=== PATIENT | female | born 1970 | race Caucasian/White ===

== ENCOUNTER 2016-06-06 06:30 | Inpatient (IN) | payer MEDICAID ==
[~2016-06-06 06:30] MED LIST: cefOXitin 2 GM in Sodium Chloride 0.9% 50 ML IV ONE
[2016-06-06] MEDS ORDERED: Acetaminophen 500 MG Tab PO ONE (06:58)
[2016-06-06] MEDS ORDERED: Celecoxib 200 MG Cap PO ONE (07:00)
[2016-06-06] MEDS ORDERED: Scopolamine 1.5 MG Transdermal Patch TOP ONE (07:00)
[2016-06-06] MEDS ORDERED: Gabapentin 300 MG Cap PO ONE (07:00)
[2016-06-06] MEDS ORDERED: Acetaminophen Soln 650 MG/20.3 ML UD Cup PO ONE (07:00)
[2016-06-06] MEDS ORDERED: cefOXitin 2 GM Vial ONE (07:15)
[2016-06-06] MEDS ORDERED: Dextrose 5%-Lactated Ringers 1,000 ML IV SCH ×2 (07:30→14:00)
[2016-06-06] MEDS ORDERED: cefOXitin 2 GM in Sodium Chloride 0.9% 50 ML IV ONE (08:30)
[2016-06-06] MEDS ORDERED: Ketamine 500 MG/5 ML MDV IV SCH (09:00)
[2016-06-06] MEDS ORDERED: Ropivacaine 60 ML, Dexamethasone 8 MG, EPINEPHrine 0.4 MG, Sodium Chloride 0.9% 17.6 ML NERVRT SCH ×4 (09:00)
[2016-06-06] MEDS ORDERED: Ondansetron 4 MG/2 ML SDV ONE (09:19)
[2016-06-06] MEDS ORDERED: Succinylcholine/Normal Saline 200 MG/10 ML Syringe ONE (09:19)
[2016-06-06] MEDS ORDERED: Rocuronium 50 MG/5 ML Vial ONE (09:19)
[2016-06-06] MEDS ORDERED: fentaNYL 250 MCG/5 ML SDV ONE (09:19)
[2016-06-06] MEDS ORDERED: Dexamethasone 4 MG/ML SDV ONE (09:19)
[2016-06-06] MEDS ORDERED: Neostigmine Methylsulfate 1 MG/ML 5 ML Syringe ONE (09:19)
[2016-06-06] MEDS ORDERED: Propofol 200 MG/20 ML SDV ONE (09:19)
[2016-06-06] MEDS ORDERED: Lactated Ringers 1,000 ML ONE (09:19)
[2016-06-06] MEDS ORDERED: Lidocaine 2% 100 MG/5 ML Syringe IVPUSH ONE (09:30)
[2016-06-06] MEDS ORDERED: hydrOXYzine HCl 50 MG/ML SDV IM PRN (13:51)
[2016-06-06] MEDS ORDERED: Labetalol 20 MG/4 ML Syringe IVPUSH PRN (13:51)
[2016-06-06] MEDS ORDERED: Ondansetron 4 MG/2 ML SDV IVPUSH PRN (13:51)
[2016-06-06] MEDS ORDERED: SCOPOLAMINE PATCH ASK TOP SCH (13:51)
[2016-06-06] MEDS: Lidocaine 0.4%/D5W 2 GM/500 ML BAG IV SCH (14:24)
[2016-06-06] MEDS: Gabapentin 250 MG/5 ML Solution ML 470 ML Bottle PO SCH ×2 (14:51→20:21)
[2016-06-06] MEDS: Acetaminophen Soln 650 MG/20.3 ML UD Cup PO SCH ×2 (15:14→21:32)
[2016-06-06] MEDS: MVI, Adult with Vitamin K 10 ML, Thiamine 200 MG, Chromium/Copper/Mang/Selen/Zn 1 ML in... IV SCH ×4 (15:48)
[2016-06-06] MEDS: cefOXitin 2 GM in Sodium Chloride 0.9% 50 ML IV SCH ×2 (15:49→21:32)
[2016-06-06] MEDS: Pantoprazole 40 MG Vial IVPUSH SCH (15:53)
[2016-06-06] MEDS: Heparin Sodium 5,000 Units/ML Vial SUBCUT SCH (18:03)
[2016-06-06] MEDS ORDERED: Heparin Sodium 5,000 Units/ML Vial SUBCUT SCH (20:00)
[2016-06-06] MEDS: traZODone 50 MG Tab PO SCH (20:21)
[2016-06-07] MEDS: Lidocaine 0.4%/D5W 2 GM/500 ML BAG IV SCH (03:14)
[2016-06-07] MEDS: cefOXitin 2 GM in Sodium Chloride 0.9% 50 ML IV SCH ×2 (03:16→10:09)
[2016-06-07] MEDS ORDERED: Iohexol 647 MG/ML 50 ML SDV PO STA (04:04)
[2016-06-07] MEDS: Acetaminophen Soln 650 MG/20.3 ML UD Cup PO SCH ×4 (05:28→21:20)
[2016-06-07] MEDS: Heparin Sodium 5,000 Units/ML Vial SUBCUT SCH ×2 (05:56→18:27)
[2016-06-07] MEDS: Celecoxib 200 MG Cap PO SCH (08:49)
[2016-06-07] MEDS: Lisinopril 10 MG Tab PO SCH (08:49)
[2016-06-07] MEDS: FLUoxetine 20 MG Cap PO SCH (08:49)
[2016-06-07] MEDS: Gabapentin 250 MG/5 ML Solution ML 470 ML Bottle PO SCH ×3 (08:52→20:36)
[2016-06-07] MEDS: SCOPOLAMINE PATCH CHECK TOP SCH (08:53)
[2016-06-07] MEDS: Dextrose 5%-Lactated Ringers 1,000 ML IV SCH (10:15)
--- NOTE | 2016-06-07 11:03 | OR ---
DATE OF PROCEDURE: 06/06/2016 PREOPERATIVE DIAGNOSIS: Morbid obesity. POSTOPERATIVE DIAGNOSES: 1. Morbid obesity. 2. Marked hepatomegaly. 3. Paraesophageal diaphragmatic hernia. 4. Mediastinal lipoma. OPERATIVE PROCEDURE: 1. Laparoscopic Yessy-en-Y gastric bypass with long limb gastroenterostomy (22064). 2. Obed-Cut needle liver biopsy (67395). 3. Repair of paraesophageal diaphragmatic hernia (36141). 4. Excision of mediastinal lipoma (12276). ANESTHESIA: General. INSTRUMENTAL MUSIC TEACHER: Nida Smith PA-C. INDICATIONS FOR PROCEDURE: This is a 46-year-old female presenting with longstanding morbid obesity and increasingly significant comorbidities. After preoperative evaluation and discussion, she wished to proceed with a gastric bypass procedure. Potential risks of the procedure including bleeding, infection, leaks from various GI tract closures, problems with bowel obstruction over time as well as possibility of cardiopulmonary, septic, or hemorrhagic complications leading to were discussed, and the patient wishes to proceed. DETAILS OF PROCEDURE: The patient was taken to the operating room and placed in a supine position. After general endotracheal anesthesia was induced, she was converted to a lithotomy position. Cabezas catheter was inserted along the gastrointestinal catheter, abdomen and draped; 15 cm inferior, 5 cm left of xiphoid process, a transverse incision was made and peritoneal cavity entered under direct vision with an Optiview trocar, inflated to 15 mmHg pressure of CO2. Laparoscope was then reinserted. No underlying trocar insertion site injuries were seen. Following this, 5 additional trocars were placed across over mid abdomen, and general exploration was undertaken. The patient was noted to have a marked hepatomegaly with liver volume being roughly 2 to 3 times normal, and the liver grossly fatty infiltrated. Obed-Cut needle biopsy was obtained from the left lobe of the liver. Minimal bleeding from the biopsy site was seen and that area was cauterized. The omentum was then divided in the midline up to the level of the transverse colon. This allowed identification of the small bowel to the ligament of Treitz. Small bowel was then traced out 200 cm distal. At that point, it was divided transversely with a DEBBIE stapler. Small bowel was then traced out additional 200 cm where the [id number] enteroenterostomy was accomplished with internal firing of the Endo-DEBBIE 60 mm stapler, was then closed transversely with the same stapler, and angles anastomosed, and mesenteric defect approximated with some 0 Ethibond stitch along with fibrin sealant. The Yessy limb was then divided from the mesentery for a few centimeters, which allowed an antecolic position of the Yessy limb up to the level of the gastroesophageal junction without tension. The liver was then retracted anteriorly. The patient noted to have a quite large hiatal hernia, major component of this was a paraesophageal type hernia with prolapse of some omentum along with the fundus of the stomach in a plane anterior to the course of the esophagus as the diaphragmatic hernia was reduced. The peritoneum along the esophagogastric junction was divided, and the esophagogastric junction then from the crura on each side, and during the course of the dissection, the mediastinal lipoma was encountered posteriorly, and this was then excised. A combined posterior and anterior repair of the diaphragmatic hernia was accomplished with a series of 0 Ethibond sutures reinforced with PTFE pledgets. At this point, the gastrointestinal catheter was inflated 15 mL and pulled up snugly against the EG junction, gastric wall over the apex balloon was then marked with electrocautery. Balloon catheter deflated and pulled up in the esophagus. The lesser omental tissue adjacent to gastric cardia was then incised allowing dissection behind the stomach at that level. Pouch formation was initiated with a transverse firing of the DEBBIE stapler at the level of the cauterized evelin. The pouch was then completed with some additional DEBBIE staple loads up to and through the angle of His. Upon completion of the pouch, both staple lines were noted to be intact. The anvil of a 21 mm EEA stapler was attached to Dudley sump type tube. The latter was brought down through the mouth and taken out through a small opening in the gastric pouch. The divided end of the Yessy limb was then opened by the EEA stapler, passed several centimeters in the lumen of the small bowel, brought up the anvil and thus creating the gastrojejunostomy. Upon removal of the stapler small bowel was closed off with a vascular staple line. Gastrojejunostomy reinforced with some 3-0 Vicryl seromuscular stitch along with fibrin sealant. Leak test was accomplished with injection of 120 mL of air in the gastric pouch while submerged with a cefoxitin-containing saline solution. No leaks were identified. Two Stanley-Jones drains were in placed adjacent to the gastrojejunostomy and subcostal trocar sites. No further problems noted. Trocars removed. The peritoneal cavity inflated. Incisions were closed with some 4-0 Vicryl skin stitch and drain affixed with some 4-0 Vicryl stitch as well. The patient was taken to the recovery room in satisfactory condition. Physician certified pathology assistant, Nida Smith, played an essential role in assisting in this case, helping to position the patient, retract structures as needed, as well as suturing and cutting sutures when indicated. Her presence improved the patient safety and decreased operative time. Ramiro Saxena MD /[id number]
--- NOTE | 2016-06-07 11:18 | CR ---
Contrast within the small bowel. No evidence for leakage. Surgical drains.
[2016-06-07] MEDS: MVI, Adult with Vitamin K 10 ML, Thiamine 200 MG, Chromium/Copper/Mang/Selen/Zn 1 ML in... IV SCH ×4 (16:12)
[2016-06-07] MEDS: Pantoprazole 40 MG Vial IVPUSH SCH (16:13)
[2016-06-07] MEDS: traZODone 50 MG Tab PO SCH (20:36)
[2016-06-08] MEDS: Dextrose 5%-Lactated Ringers 1,000 ML IV SCH (02:29)
[2016-06-08] MEDS: Acetaminophen Soln 650 MG/20.3 ML UD Cup PO SCH ×4 (04:29→21:05)
[2016-06-08] MEDS: Heparin Sodium 5,000 Units/ML Vial SUBCUT SCH ×2 (05:21→17:26)
[2016-06-08] MEDS ORDERED: Ondansetron 4 MG Tab.DIS PO PRN (06:57)
--- NOTE | 2016-06-08 07:47 | PN ---
DATE OF SERVICE: 06/08/2016 SUBJECTIVE: Juju is postop day #2, following a Yessy-en-Y gastric bypass surgery. Her pain is controlled. Her activity is good. She has been afebrile. She did have one temperature of 99.9, but after good pulmonary function, it did come down to 98. Oral intake was 960 and output was 1450. JULIA put out 130 mL of a light pink serous drainage. REVIEW OF SYSTEMS: Remainder of review of systems, negative for any pertinent positives and negatives. OBJECTIVE: GENERAL: Juju Barron is a 46-year-old female. She is alert and orientated. VITAL SIGNS: TPR 98.7, 73, 16, blood pressure is 159/90. HEENT: Negative. NECK: Supple. HEART: Regular rate and rhythm. LUNGS: Clear. ABDOMEN: Dressings dry and intact. JULIA drain as above. Abdominal binders on. EXTREMITIES: SCDs are on and there is no peripheral edema. ASSESSMENT: Laparoscopic Yessy-en-Y gastric bypass surgery, liver biopsy, repair of diaphragmatic hernia, and excision of mediastinal lipoma for morbid obesity, hepatomegaly, diaphragmatic hernia, and mediastinal lipoma on 06/06/2016. PLAN: Give 3 med cups to drink per hour and record at bedside. DC scopolamine patch. Dressing off. May shower. DC JULIA drain. Good pulmonary toilet. Reinforcement of dietary education. We will evaluate p.r.n. or in a.m. Plan discharge in a.m. Nida Smith PA-C /[id number]
[2016-06-08] MEDS: Lisinopril 10 MG Tab PO SCH (08:38)
[2016-06-08] MEDS: FLUoxetine 20 MG Cap PO SCH (08:38)
[2016-06-08] MEDS: Celecoxib 200 MG Cap PO SCH (08:38)
[2016-06-08] MEDS: SCOPOLAMINE PATCH CHECK TOP SCH (08:39)
[2016-06-08] MEDS: Gabapentin 250 MG/5 ML Solution ML 470 ML Bottle PO SCH ×3 (08:42→21:05)
[2016-06-08] MEDS ORDERED: Cyanocobalamin (Vitamin B12) 1,000 MCG/ML SDV IM ONE (09:00)
--- NOTE | 2016-06-08 14:15 | PN ---
DATE OF SERVICE: 06/07/2016 The patient is postop day 1 from laparoscopic Yessy-en-Y gastric bypass. No major problems were noted overnight. Urine output has been satisfactory. Oral intake around 600 mL. We will go up to step-2 diet without solids today. Restart her lisinopril and Prozac. Pain control appears to be fairly good, and we will plan to discontinue the lidocaine around noon and see if she remains satisfactorily controlled in terms of pain at that point. Ramiro Saxena MD /[id number]
[2016-06-08] MEDS: traZODone 50 MG Tab PO SCH (21:05)
[2016-06-09] MEDS: Acetaminophen Soln 650 MG/20.3 ML UD Cup PO SCH (03:04)
[2016-06-09] MEDS: Heparin Sodium 5,000 Units/ML Vial SUBCUT SCH (05:49)
[2016-06-09 07:12] VITALS: BP 120/70
--- NOTE | 2016-06-09 23:22 | DISCH ---
ADMISSION DIAGNOSES: Morbid obesity, history of anemia, major depression, dysfunctional uterine bleeding, essential hypertension, obstructive sleep apnea on CPAP, primary osteoarthritis of left knee. DISCHARGE DIAGNOSES: Laparoscopic Yessy-en-Y gastric bypass surgery, liver biopsy, repair of diaphragmatic hernia, and excision of mediastinal lipoma for morbid obesity, hepatomegaly, diaphragmatic hernia, and mediastinal lipoma on 06/06/2016. HISTORY: Juju Barron is a 46-year-old female with longstanding history of morbid obesity and increasingly comorbidities. After preoperative evaluation and discussion of possible risks and possible complications, she wished to proceed with surgical procedure. HOSPITAL COURSE: Juju had her surgery on 06/06/2016. She had no operative complications. On postop day #1, her upper GI was normal. She was started on step 2 gastric bypass diet. On postop day #2, her activity was good. She received dietary instruction and her JULIA drain was removed. She also received a B12 1000 mcg IM injection. On postop day #3, she was ready to be discharged to home. Her oral intake was adequate. Vital signs stable, activity good, and pain was well managed. PHYSICAL EXAMINATION: GENERAL: Juju Barron is a pleasant 46-year-old female. VITAL SIGNS: Height is 5 feet 4 inches. Weight is 267 pounds. BMI is 45.8. TPR is 97.9, 60, 18. Blood pressure 120/70. HEENT: Negative. NECK: Supple. HEART: Regular rate and rhythm. LUNGS: Clear. ABDOMEN: Incisions look good, 4x4 over JULIA drains, abdominal binder is on. EXTREMITIES: Without peripheral edema. DISPOSITION: Discharged to home. CONDITION: Stable and improving. FOLLOWUP APPOINTMENT: With Nida Smith PA-C, on 06/15/2016 at 11:00 a.m. HOME MEDICATION: Tylenol 650 mg/20.3 mL every 6 hours for 1 week then p.r.n., Celebrex 200 mg oral daily #14, multivitamin chewable complete 1 twice daily, B12 1000 mcg sublingual daily. She is to resume her home medication of fluoxetine 60 mg oral daily, lisinopril 10 mg oral daily, papaya enzyme one tablet p.r.n., trazodone 50 mg oral at bedtime. She is to stop taking her calcium, vitamin D, ferrous sulfate, naproxen, and B complex. DIET AFTER DISCHARGE: Step-2 gastric bypass diet for 2 weeks. Drink 8 to 10 glasses of water a day. ACTIVITY: No lifting greater than 10 pounds for 2 weeks[address] Driving, do not drive on pain medication. Shower bathing, may shower. Keep operative site clean and dry. Wear abdominal binder for 2 weeks and then as tolerated. Notify provider if any fever, increased pain, nausea, or vomiting. SPECIAL INSTRUCTION: Use incentive spirometer 10 times every hour while awake for 2 weeks.
== END 2016-06-09 08:45 | disposition home or self-care (01) | DRG 621 ==
LOC: JP.SDSSCHI 06:30 → JP.SDS 06:30 → EDSTATUS 07:15 → JP.2SS 13:30
PROVIDERS: ADMIT Surgery; ATTEND Surgery
PROC: 0FB24ZX Excision of Left Lobe Liver, Percutaneous Endoscopic Approach, Diagnostic (ICD-10-PCS; principal; 2016-06-06)
PROC: 0BQS4ZZ (ICD-10-PCS; principal; 2016-06-06)
PROC: 0BQR4ZZ (ICD-10-PCS; principal; 2016-06-06)
PROC: 0WBC4ZX Excision of Mediastinum, Percutaneous Endoscopic Approach, Diagnostic (ICD-10-PCS; principal; 2016-06-06)
PROC: 0D164ZA Bypass Stomach to Jejunum, Percutaneous Endoscopic Approach (ICD-10-PCS; principal; 2016-06-06)
DX: E66.01 Morbid (severe) obesity due to excess calories (principal); Z68.42 Body mass index [BMI] 45.0-49.9, adult; R16.0 Hepatomegaly, not elsewhere classified; K44.9 Diaphragmatic hernia without obstruction or gangrene; D17.4 Benign lipomatous neoplasm of intrathoracic organs; I10 Essential (primary) hypertension; K76.0 Fatty (change of) liver, not elsewhere classified; M17.12 Unilateral primary osteoarthritis, left knee; F32.9 Major depressive disorder, single episode, unspecified
CPT/HCPCS: 36415; 74240; 74240-26; 81025; 82728; 82962; 86850; 86900; 86901; 88304; 88305; 88307; 88313; 88342; 90911-GP; 94762; A9270-GY; C9113; J0171; J0694; J1100; J1644; J2001; J2405; J2704; J2795; J3010; J3410; J3411; J3420; J7030; J7040; J7042; J7050; J7120; Q9967

== ENCOUNTER 2016-08-11 09:53 | Day surgery (SDC) | payer MEDICAID ==
[2016-08-11] MEDS ORDERED: Cyanocobalamin (Vitamin B12) 1,000 MCG/ML SDV IM ONE (11:00)
[2016-08-11] MEDS ORDERED: Lactated Ringers 1,000 ML IV ONE (11:30)
[2016-08-11] MEDS ORDERED: MVI, Adult with Vitamin K 10 ML, Thiamine 200 MG, Chromium/Copper/Mang/Selen/Zn 1 ML in... IV ONE ×4 (11:30)
[2016-08-11] MEDS ORDERED: fentaNYL 100 MCG/2 ML SDV ONE (11:34)
[2016-08-11] MEDS ORDERED: Midazolam 1 MG/ML 2 ML SDV ONE (11:34)
[2016-08-11] MEDS ORDERED: Propofol 200 MG/20 ML SDV ONE (11:34)
[2016-08-11] MEDS ORDERED: Glycopyrrolate 0.2 MG/ML 2 ML SYRINGE IVPUSH ONE (11:45)
[2016-08-11 13:43] VITALS: BP 155/95
--- NOTE | 2016-08-12 02:24 | OR ---
DATE OF PROCEDURE: 08/11/2016 PREOPERATIVE DIAGNOSIS: Stricture at gastrojejunostomy. 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 OPERATIVE PROCEDURE: Upper GI endoscopy with dilation of gastrojejunostomy (21674). ANESTHESIA: IV sedation. INDICATIONS FOR PROCEDURE: This is a 46-year-old female presenting with symptoms of stricturing at her gastrojejunostomy status post Yessy-en-Y gastric bypass in May of this year. Plan is to proceed with an upper GI endoscopy with dilation as indicated. Potential risks including bleeding and perforation were discussed, and the patient wishes to proceed. DETAILS OF PROCEDURE: The patient was taken to the operating room and placed in the left lateral decubitus position. IV sedation was administered, after which the upper GI endoscope was passed orally through the esophagus and into the gastric pouch. The patient was noted to have a moderate stricture at the gastrojejunostomy with a 1-cm scope quite being able to be passed through the anastomosis. A Bard gastrointestinal catheter was entered across the anastomosis and inflated to 36-Telugu size, this was held in position for 1 minute, after which the balloon catheter was easily passed through the anastomosis. No complications were noted and the scope was then removed and the patient was taken to the recovery room in satisfactory condition. Ramiro Saxena MD /[id number]
== END 2016-08-11 13:48 | disposition home or self-care (01) ==
LOC: JP.SDS 09:53
PROVIDERS: ATTEND Surgery
DX: K91.89 Other postprocedural complications and disorders of digestive system (principal); I10 Essential (primary) hypertension; G47.33 Obstructive sleep apnea (adult) (pediatric); F32.9 Major depressive disorder, single episode, unspecified; F17.200 Nicotine dependence, unspecified, uncomplicated; Z98.84 Bariatric surgery status
CPT/HCPCS: 43245; J2250; J2704; J3010; J3411; J3420; J7120

== ENCOUNTER 2018-08-23 11:26 | Emergency (ER) | payer OTHER ==
[2018-08-23 12:31] VITALS: BP 130/63; PULSE 57
--- NOTE | 2018-08-23 12:39 | EDM.PDOC ---
ED HPI GENERAL MEDICAL PROBLEM - General Chief Complaint: Abdominal Pain Stated Complaint: LEFT FLANK PAIN Time Seen by Provider: 08/23/18 12:31 Source of Information: Reports: Patient, RN Notes Reviewed History Limitations: Reports: No Limitations - History of Present Illness INITIAL COMMENTS - FREE TEXT/NARRATIVE: 48-year-old female presents emergency department today complaint of urinary frequency and urgency she has had some pain going up into her left flank as well. No fevers symptoms have been ongoing for 2 days no history of nephrolithiasis 8 Pain Score (Numeric/FACES): 8 - Related Data Allergies Allergy/AdvReac Type Severity Reaction Status Date / Time No Known Allergies Allergy Verified 08/23/18 12:23 Home Meds: Home Meds FLUoxetine [PROzac] 60 mg PO DAILY 07/12/14 [History] Lisinopril 10 mg PO DAILY 07/12/14 [History] traZODone 50 mg PO BEDTIME 06/02/16 [History] Multivitamins [Childrens Chewable Vitamin] 1 tab PO BID #0 06/08/16 [Rx] Cholecalciferol (Vitamin D3) [Vitamin D3] 3,000 units PO DAILY 08/10/16 [History ] Ferrous Sulfate [Iron] 325 mg PO BID 08/10/16 [History] Vitamin B Complex [B Complex] 1 tab PO DAILY 08/10/16 [History] Hyoscyamine [Levsin] 0.125 mg PO Q4HR PRN 01/19/18 [History] Magnesium Oxide 400 mg PO DAILY 01/19/18 [History] Zinc Gluconate [Zinc] 50 mg PO DAILY 01/19/18 [History] Calcium Citrate 250 mg PO BID 01/22/18 [History] Cholecalciferol (Vitamin D3) [Vitamin D3] 5,000 unit PO DAILY 01/22/18 [History] Vitamin A 20,000 units PO DAILY 01/22/18 [History] Cyanocobalamin (Vitamin B-12) [Vitamin B-12] 1,000 mcg SL DAILY 02/08/18 [ History] Past Medical History HEENT History: Reports: Impaired Vision Other HEENT History: wears glasses or contacts Cardiovascular History: Reports: Hypertension Respiratory History: Reports: Sleep Apnea Other Respiratory History: Wears CPAP NICKER AND BREAKER History: Reports: Dysfunctional 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, Musculoskeletal History: Reports: Arthritis Other Musculoskeletal History: left knee issues Neurological History: Reports: Migraines Psychiatric History: Reports: Depression, Psych Hospitalization(s), Suicide Attempt Endocrine/Metabolic History: Reports: Obesity/BMI 30+ Hematologic History: Reports: Anemia - Infectious Disease History Infectious Disease History: Reports: Chicken Pox, Measles, Mumps - Past Surgical History HEENT Surgical History: Reports: None Cardiovascular Surgical History: Reports: None Respiratory Surgical History: Reports: None GI Surgical History: Reports: Bariatric Procedure, Colonoscopy, EGD Female Surgical History: Reports: Section Endocrine Surgical History: Reports: None Neurological Surgical History: Reports: None Musculoskeletal Surgical History: Reports: Arthroscopic Knee Dermatological Surgical History: Reports: None Social & Family History - Family History Family Medical History: Noncontributory - Tobacco Use Smoking Status *Q: Never Smoker - Caffeine Use Caffeine Use: Reports: Coffee ED ROS GENERAL - Review of Systems Review Of Systems: See Below Constitutional: Denies: Fever HEENT: Reports: No Symptoms Respiratory: Reports: No Symptoms Cardiovascular: Reports: No Symptoms GI/Abdominal: Reports: No Symptoms : Reports: Flank Pain, Frequency, Urgency ED EXAM, RENAL/ - Physical Exam Exam: See Below Exam Limited By: No Limitations General Appearance: Alert, WD/WN, No Apparent Distress Respiratory/Chest: No Respiratory Distress GI/Abdominal: Normal Bowel Sounds, Soft, Non-Tender Course - Vital Signs Last Recorded V/S: Last Vital Signs Temp 96.4 F 08/23/18 12:29 Pulse 57 L 08/23/18 12:29 Resp 14 08/23/18 12:29 BP 130/63 08/23/18 12:29 Pulse Ox 98 08/23/18 12:29 - Orders/Labs/Meds Orders: Active Orders 24 hr Category Date Time Status Peripheral IV Care [RC] . DIRECTED Care 08/23/18 13:09 Active Lactated Ringers [Ringers, Lactated] 1,000 ml Med 08/23/18 13:15 Active IV ASDIRECTED Sodium Chloride 0.9% [Saline Flush] Med 08/23/18 13:08 Active 10 ml FLUSH ASDIRECTED PRN Peripheral IV Insertion Adult [OM.PC] Urgent Oth 08/23/18 13:08 Ordered Medication Orders Lactated Ringer's (Ringers, Lactated) 1,000 mls @ 999 mls/hr IV ASDIRECTED TRESSA Last Admin: 08/23/18 14:07 Dose: 999 mls/hr Sodium Chloride (Saline Flush) 10 ml FLUSH ASDIRECTED PRN PRN Reason: Keep Vein Open Last Admin: 08/23/18 14:06 Dose: 10 ml Labs: Laboratory Tests 08/23/18 08/23/18 08/23/18 Range/Units 12:51 13:08 13:08 WBC 8.4 (4.5-11.0) K/uL RBC 4.13 (3.30-5.50) M/uL Hgb 11.3 L D (12.0-15.0) g/dL Hct 35.6 L (36.0-48.0) % MCV 86 (80-98) fL MCH 27 (27-31) pg MCHC 32 (32-36) % Plt Count 125 L (150-400) K/uL Neut % (Auto) 79 H (36-66) % Lymph % (Auto) 12 L (24-44) % [place] % (Auto) 6 (2-6) % Eos % (Auto) 2 (2-4) % Baso % (Auto) 0 (0-1) % Sodium 144 (140-148) mmol/L Potassium 3.8 (3.6-5.2) mmol/L Chloride 110 H (100-108) mmol/L Carbon Dioxide 23 (21-32) mmol/L Anion Gap 14.8 H (5.0-14.0) mmol/L BUN 7 (7-18) mg/dL Creatinine 0.7 (0.6-1.0) mg/dL Est Cr Clr Drug Dosing 79.54 mL/min Estimated GFR (MDRD) > 60 (>60) Glucose 107 H (74-106) mg/dL Calcium 8.7 (8.5-10.1) mg/dL Total Bilirubin 0.3 (0.2-1.0) mg/dL AST 24 (15-37) U/L ALT 29 (12-78) U/L Alkaline Phosphatase 122 H (46-116) U/L Total Protein 6.8 (6.4-8.2) g/dL Albumin 3.4 (3.4-5.0) g/dL Globulin 3.4 (2.3-3.5) g/dL Albumin/Globulin Ratio 1.0 L (1.2-2.2) Urine Color Yellow Urine Appearance Slightly cloudy Urine pH 5.0 (4.5-8.0) Ur Specific [place] 1.025 (1.008-1.030) Urine Protein Trace (NEGATIVE) mg/dL Urine Glucose (UA) Normal (NEGATIVE) mg/dL Urine Ketones Negative (NEGATIVE) mg/dL Urine Occult Blood Large (NEGATIVE) Urine Nitrite Negative (NEGATIVE) Urine Bilirubin Negative (NEGATIVE) Urine Urobilinogen Normal (NORMAL) mg/dL Ur Leukocyte Esterase Negative (NEGATIVE) Urine RBC 20-30 H (0-5) Urine WBC 0-5 (0-5) Ur Epithelial Cells Not seen Amorphous Sediment Few Urine Bacteria Not seen Urine Mucus Many Meds: Medications Generic Name Dose Route Start Last Admin Trade Name Freq PRN Reason Stop Dose Admin Lactated Ringer's 1,000 mls @ 999 mls/hr 08/23/18 13:15 08/23/18 14:07 Ringers, Lactated IV 999 mls/hr ASDIRECTED TRESSA Administration Sodium Chloride 10 ml 08/23/18 13:08 08/23/18 14:06 Saline Flush FLUSH 10 ml ASDIRECTED PRN Administration Keep Vein Open Departure - Departure Time of Disposition: 14:32 Disposition: Home, Self-Care 01 Condition: Fair Clinical Impression: Nephrolithiasis - Discharge Information Instructions: Kidney Stones, [id number] Referrals: Chester Plata MD [Primary Care Provider] - Forms: ED Department Discharge Additional Instructions: Use Tylenol or Motrin as needed for pain control use hydrocodone for breakthrough pain continue to push fluids follow-up primary care 3-5 days if not better - My Orders Last 24 Hours: My Active Orders 08/23/18 13:08 Sodium Chloride 0.9% [Saline Flush] 10 ml FLUSH ASDIRECTED PRN Peripheral IV Insertion Adult [OM.PC] Urgent 08/23/18 13:09 Peripheral IV Care [RC] . DIRECTED 08/23/18 13:15 Lactated Ringers [Ringers, Lactated] 1,000 ml IV ASDIRECTED - Assessment/Plan Last 24 Hours: My Active Orders 08/23/18 13:08 Sodium Chloride 0.9% [Saline Flush] 10 ml FLUSH ASDIRECTED PRN Peripheral IV Insertion Adult [OM.PC] Urgent 08/23/18 13:09 Peripheral IV Care [RC] . DIRECTED 08/23/18 13:15 Lactated Ringers [Ringers, Lactated] 1,000 ml IV ASDIRECTED Plan: Assessment Acuity = acute Site and laterality = 6 mm nephrolithiasis left side Etiology = unknown etiology Manifestations = abdominal pain, nausea Location of injury = Home Lab values = CBC CMP unremarkable urinalysis reveals 20-[address] scan describes the stone above Plan Use Tylenol or Motrin as needed for pain control use hydrocodone for breakthrough pain continue to push fluids follow-up primary care 3-5 days if not better This note was dictated using Curse voice recognition software please call with any questions on syntax or grammar.
[2018-08-23] MEDS ORDERED: Sodium Chloride 0.9% 10 ML Syringe FLUSH PRN (13:08)
[2018-08-23] MEDS ORDERED: Lactated Ringers 1,000 ML IV SCH (13:15)
--- NOTE | 2018-08-23 14:20 | CRLCT ---
HISTORY: Left flank pain. TECHNIQUE: Noncontrast CT abdomen and pelvis. COMPARISON: No prior. FINDINGS: There is no focal liver parenchymal abnormality. Hyperdense focus within the gallbladder lumen likely relates to a stone. Gallbladder does not appear overly distended. Spleen and right adrenal gland are unremarkable. The left adrenal gland may be slightly thickened. Pancreas is not well evaluated without contrast though appears grossly unremarkable. - There are a few faint/punctate intrarenal calculi bilaterally. A 6 mm calculus is present along the left posterior aspect of the urinary bladder. This may be at the ureterovesical junction or already within the bladder lumen. The distal left ureter appears dilated. There is no dilatation of left renal collecting system. No right-sided hydronephrosis or right ureteral calculus. Multiple pelvic calcifications otherwise related to phleboliths. Urinary bladder does not appear overly distended. - Postsurgical changes of gastric bypass. Small hiatal hernia. Excluded portion stomach does not appear excessively distended. There is no small bowel obstruction. No appendicitis. No diverticulitis. Trace pelvic free fluid. No localized collection. No free air. No abdominal aortic aneurysm. - Degenerative changes of the spine. No acute fractures. - No infiltrate within the lung bases. There are a few subpleural nodular opacities which are more likely benign. For example, 3-4 mm subpleural nodules within the left lower lobe on image #10 of series 2. IMPRESSION: 1. Along the left posterior aspect of the urinary bladder is a 6 mm calculus which may either be at the ureterovesical junction or within the bladder lumen itself. The distal left ureter appears dilated. There is no dilatation of the left renal collecting system. 2. A few faint/subtle intrarenal calculi. 3. Postsurgical changes of prior gastric bypass. No bowel obstruction. 4. Hyperdense focus within the gallbladder lumen likely reflecting a stone. 5. Trace pelvic free fluid. 6. A few subpleural micro nodules within the lungs which are more likely benign. If the patient is high risk, follow-up in 12 months could be performed to determine stability. Dictated by Louis Lorenzana MD @ 08/23/2018 2:19:40 PM Please note that all CT scans at this facility use dose modulation, iterative reconstruction, and/or weight-based dosing when appropriate to reduce radiation dose to as low as reasonably achievable. Dictated by: Louis Lorenzana MD @ 08/23/2018 14:19:51 (Electronically Signed)
== END 2018-08-23 14:50 | disposition home or self-care (01) ==
LOC: JP.ED 11:26
DX: N20.0 Calculus of kidney (principal); I10 Essential (primary) hypertension; D64.9 Anemia, unspecified; F32.9 Major depressive disorder, single episode, unspecified; E66.9 Obesity, unspecified; Z79.899 Other long term (current) drug therapy
CPT/HCPCS: 36415; 74176; 80053; 81001; 85025; 96360; 99284; J7120

== ENCOUNTER 2019-04-07 22:42 | Emergency (ER) | payer BC, OTHER ==
[2019-04-07 23:21] VITALS: BP 124/78; PULSE 87
--- NOTE | 2019-04-07 23:58 | EDM.PDOC ---
ED HPI GENERAL MEDICAL PROBLEM - General Chief Complaint: General Stated Complaint: COUGH Time Seen by Provider: 04/07/19 23:25 Source of Information: Reports: Patient, Family History Limitations: Reports: No Limitations - History of Present Illness INITIAL COMMENTS - FREE TEXT/NARRATIVE: 49-year-old female with a cough and cold for the past 2 weeks, tonight she was choking and scared her . Intermittent fevers. Runny nose, congestion, intermittent ear pain. Onset: Unknown/Unsure Duration: Week(s): (Symptoms have been waxing and waning for at least 2 weeks) Associated Symptoms: Reports: Cough, Fever/Chills, Malaise, Shortness of Breath Generalized Pain Score (Numeric/FACES): 8 - Related Data Allergies Allergy/AdvReac Type Severity Reaction Status Date / Time No Known Allergies Allergy Verified 08/23/18 12:23 Home Meds: Home Meds FLUoxetine [PROzac] 60 mg PO DAILY 07/12/14 [History] Lisinopril 10 mg PO DAILY 07/12/14 [History] traZODone 50 mg PO BEDTIME 06/02/16 [History] Multivitamins [Childrens Chewable Vitamin] 1 tab PO BID #0 06/08/16 [Rx] Vitamin B Complex [B Complex] 1 tab PO DAILY 08/10/16 [History] Hyoscyamine [Levsin] 0.125 mg PO Q4HR PRN 01/19/18 [History] Magnesium Oxide 400 mg PO DAILY 01/19/18 [History] Calcium Citrate 250 mg PO BID 01/22/18 [History] Cholecalciferol (Vitamin D3) [Vitamin D3] 5,000 unit PO BID 01/22/18 [History] Vitamin A 20,000 units PO DAILY 01/22/18 [History] Cyanocobalamin (Vitamin B-12) [Vitamin B-12] 1,000 mcg SL DAILY 02/08/18 [ History] Albuterol Sulfate [Proair Digihaler] 90 mcg IH ASDIRECTED 04/07/19 [History] Cyanocobalamin (Vitamin B-12) [Cyanocobalamin Injection] 1,000 mcg IM Q14D 04/07 [History] Iron,Carbonyl/Ascorbic Acid [Vitron-C Tablet] 1 tab PO DAILY 04/07/19 [History] Past Medical History HEENT History: Reports: Impaired Vision Other HEENT History: wears glasses or contacts Cardiovascular History: Reports: Hypertension Respiratory History: Reports: Asthma, Sleep Apnea Other Respiratory History: Wears CPAP Gastrointestinal History: Reports: None Genitourinary History: Reports: None 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, Musculoskeletal History: Reports: Arthritis Other Musculoskeletal History: left knee issues Neurological History: Reports: Migraines Psychiatric History: Reports: Depression, Psych Hospitalization(s), Suicide Attempt Endocrine/Metabolic History: Reports: Obesity/BMI 30+, Vitamin D Deficiency Hematologic History: Reports: Anemia, B12 Deficiency, Folic Acid - Infectious Disease History Infectious Disease History: Reports: Chicken Pox - Past Surgical History HEENT Surgical History: Reports: None Cardiovascular Surgical History: Reports: None Respiratory Surgical History: Reports: None GI Surgical History: Reports: Bariatric Procedure, Colonoscopy, EGD Female Surgical History: Reports: Section Endocrine Surgical History: Reports: None Neurological Surgical History: Reports: None Musculoskeletal Surgical History: Reports: Arthroscopic Knee Dermatological Surgical History: Reports: None Social & Family History - Family History Family Medical History: Noncontributory - Tobacco Use Smoking Status *Q: Light Tobacco Smoker Years of Tobacco use: 20 Packs/Tins Daily: 0.1 Second Hand Smoke Exposure: No - Caffeine Use Caffeine Use: Reports: Coffee - Recreational Drug Use Recreational Drug Use: No ED ROS GENERAL - Review of Systems Review Of Systems: See Below Constitutional: Reports: Fever, Chills, Malaise HEENT: Reports: Ear Pain, Rhinitis. Denies: Throat Pain Respiratory: Reports: Shortness of Breath, Cough GI/Abdominal: Denies: Abdominal Pain, Nausea, Vomiting Skin: Reports: Other (Area of rash on her back) Neurological: Reports: Headache (Intermittent, none currently) ED EXAM, GENERAL - Physical Exam Exam: See Below Exam Limited By: No Limitations General Appearance: Alert, No Apparent Distress Head: Atraumatic Respiratory/Chest: No Respiratory Distress, Rhonchi (Scattered expiratory rhonchi and wheezing especially with coughing), Wheezing Cardiovascular: Regular Rate, Rhythm Neurological: Alert, Oriented Psychiatric: Normal Affect, Normal Mood Course - Vital Signs Last Recorded V/S: Last Vital Signs Temp 97.5 F 04/07/19 23:21 Pulse 87 04/07/19 23:21 Resp 20 04/07/19 23:21 BP 124/78 04/07/19 23:21 Pulse Ox 95 04/07/19 23:21 - Orders/Labs/Meds Orders: Active Orders 24 hr Category Date Time Status Chest 2V [CR] Routine Exams 04/07/19 23:31 Taken - Re-Assessments/Exams Free Text/Narrative Re-Assessment/Exam: 04/07/19 23:58 2 view chest x-ray is negative but influenza antigens is positive for influenza A. 04/08/19 00:02 Patient was reassured that conservative care should be sufficient, she is very stable. She can treat fever as needed and continue with cold medications. Return if worsening. Departure - Departure Time of Disposition: 00:36 Disposition: Home, Self-Care 01 Clinical Impression: Influenza A - Discharge Information Instructions: Influenza, Adult, [id number] Referrals: PCP,None [Primary Care Provider] - Forms: ED Department Discharge Care Plan Goals: Rest, fluids, continue with cold medicine and Tylenol if helpful. Return if worsening such as persistent difficulty breathing. Sepsis Event Note - Evaluation Sepsis Screening Result: No Definite Risk - Focused Exam Vital Signs: Vital Signs Temp Pulse Resp BP Pulse Ox 04/07/19 23:21 97.5 F 87 20 124/78 95 04/07/19 23:18 97.5 F 87 20 124/78 95 Date Exam was Performed: 04/08/19 Time Exam was Performed: 01:51 - My Orders Last 24 Hours: My Active Orders 04/07/19 23:31 Chest 2V [CR] Routine - Assessment/Plan Last 24 Hours: My Active Orders 04/07/19 23:31 Chest 2V [CR] Routine
--- NOTE | 2019-04-08 11:52 | CR ---
CHEST: 2 view CLINICAL HISTORY:Dyspnea COMPARISON:2009 FINDINGS: The heart size, pulmonary vascular and hilar structures are normal. No infiltrate effusion or pneumothorax is seen. IMPRESSION: No acute cardiopulmonary process.
== END 2019-04-08 00:37 | disposition home or self-care (01) ==
LOC: JP.ED 22:42
DX: J10.1 Influenza due to other identified influenza virus with other respiratory manifestations (principal); I10 Essential (primary) hypertension; J45.909 Unspecified asthma, uncomplicated; F32.9 Major depressive disorder, single episode, unspecified; E66.9 Obesity, unspecified; F17.210 Nicotine dependence, cigarettes, uncomplicated; Z79.899 Other long term (current) drug therapy; Z68.25 Body mass index [BMI] 25.0-25.9, adult
CPT/HCPCS: 71046; 71046-26; 87804; 87804-59; 99283-25

== ENCOUNTER 2019-06-23 21:42 | Emergency (ER) | payer BC ==
[2019-06-23] MEDS ORDERED: Bacitracin Oint 1 GM U/D Packet TOP ONE (21:56)
[2019-06-23 22:22] VITALS: BP 147/79; PULSE 90
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
--- NOTE | 2019-06-24 12:57 | CR ---
FOOT RIGHT 3 views CLINICAL HISTORY:Trauma FINDINGS:Patient has a large calcaneal spur. There is a transverse lucency near the base of the spur. The there may be some swelling in the heel pad. There are mild osteoarthritic type changes. Impression: Linear lucency through base of a large calcaneal spur could be due to acute fracture. This should be clinically correlated for point tenderness. Fingers Fifth Digit Lt F4 CLINICAL HISTORY: Trauma FINDINGS: Patient is a fracture through the base of the fifth distal phalanx. This extends into the posterior articular margin. IMPRESSION: Fracture through base of fifth distal phalanx
== END 2019-06-23 22:40 ==
LOC: JP.ED 21:42
DX: S62.637A Displaced fracture of distal phalanx of left little finger, initial encounter for closed fracture (principal); S61.411A Laceration without foreign body of right hand, initial encounter; S90.31XA Contusion of right foot, initial encounter; I10 Essential (primary) hypertension; J45.909 Unspecified asthma, uncomplicated; F32.9 Major depressive disorder, single episode, unspecified; F17.210 Nicotine dependence, cigarettes, uncomplicated; Z68.26 Body mass index [BMI] 26.0-26.9, adult; E66.9 Obesity, unspecified; Y04.0XXA Assault by unarmed brawl or fight, initial encounter
CPT/HCPCS: 12001; 73140; 73630; 99283; J2001

== ENCOUNTER 2019-09-04 21:53 | Emergency (ER) | payer BC ==
[2019-09-04 22:15] VITALS: BP 138/89; PULSE 96
[2019-09-04] MEDS: Aluminum Hydroxide/Magnesium Hydroxide/Simethicone Susp 30 ML Cup PO ONE (22:37)
--- NOTE | 2019-09-04 22:57 | EDM.PDOC ---
ED HPI GENERAL MEDICAL PROBLEM - General Chief Complaint: Fever Stated Complaint: ABD PAIN,FEVER,DIZZINESS Time Seen by Provider: 09/04/19 22:20 Source of Information: Reports: Patient History Limitations: Reports: No Limitations - History of Present Illness INITIAL COMMENTS - FREE TEXT/NARRATIVE: 49-year-old female has had epigastric discomfort for most of the day, mild nausea but no vomiting or diarrhea. She missed work today because of the intermittent abdominal discomfort, and she also discovered she was running low- grade fevers from 99 to 100.8. [facility] and to get a work note. She still is having some mild epigastric discomfort, she has not taken any antacids or other medications. She looks comfortable. Onset: Unknown/Unsure Duration: Hour(s): (Symptoms for 12 hours, most of the day) Location: Reports: Abdomen (Upper abdomen and epigastric area) Associated Symptoms: Reports: Fever/Chills, Nausea/Vomiting (Mild nausea but no vomiting) middle abd Pain Score (Numeric/FACES): 7 - Related Data Allergies Allergy/AdvReac Type Severity Reaction Status Date / Time No Known Allergies Allergy Verified 09/04/19 22:16 Home Meds: Home Meds FLUoxetine [PROzac] 60 mg PO DAILY 07/12/14 [History] Lisinopril 10 mg PO DAILY 07/12/14 [History] traZODone 50 mg PO BEDTIME 06/02/16 [History] Multivitamins [Childrens Chewable Vitamin] 1 tab PO BID #0 06/08/16 [Rx] Vitamin B Complex [B Complex] 1 tab PO DAILY 08/10/16 [History] Hyoscyamine [Levsin] 0.125 mg PO Q4HR PRN 01/19/18 [History] Magnesium Oxide 400 mg PO DAILY 01/19/18 [History] Calcium Citrate 250 mg PO BID 01/22/18 [History] Cholecalciferol (Vitamin D3) [Vitamin D3] 5,000 unit PO BID 01/22/18 [History] Vitamin A 20,000 units PO DAILY 01/22/18 [History] Cyanocobalamin (Vitamin B-12) [Vitamin B-12] 1,000 mcg SL DAILY 02/08/18 [History] Albuterol Sulfate [Proair Digihaler] 90 mcg IH ASDIRECTED 04/07/19 [History] Cyanocobalamin (Vitamin B-12) [Cyanocobalamin Injection] 1,000 mcg IM Q14D 04/07/19 [History] Iron,Carbonyl/Ascorbic Acid [Vitron-C Tablet] 1 tab PO DAILY 04/07/19 [History] Past Medical History HEENT History: Reports: Impaired Vision Other HEENT History: wears glasses or contacts Cardiovascular History: Reports: Hypertension Respiratory History: Reports: Asthma, Sleep Apnea Other Respiratory History: Wears CPAP Gastrointestinal History: Reports: None Genitourinary History: Reports: None 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, Musculoskeletal History: Reports: Arthritis Other Musculoskeletal History: left knee issues Neurological History: Reports: Migraines Psychiatric History: Reports: Depression, Psych Hospitalization(s), Suicide Attempt Endocrine/Metabolic History: Reports: Obesity/BMI 30+, Vitamin D Deficiency Hematologic History: Reports: Anemia, B12 Deficiency, Folic Acid - Infectious Disease History Infectious Disease History: Reports: Chicken Pox - Past Surgical History Head Surgeries/Procedures: Reports: None HEENT Surgical History: Reports: None Cardiovascular Surgical History: Reports: None Respiratory Surgical History: Reports: None GI Surgical History: Reports: Bariatric Procedure, Colonoscopy, EGD Female Surgical History: Reports: Section Endocrine Surgical History: Reports: None Neurological Surgical History: Reports: None Musculoskeletal Surgical History: Reports: Arthroscopic Knee Dermatological Surgical History: Reports: None Social & Family History - Family History Family Medical History: Noncontributory - Tobacco Use Smoking Status *Q: Current Every Day Smoker Years of Tobacco use: 35 Packs/Tins Daily: 0.2 Used Tobacco, but Quit: No Second Hand Smoke Exposure: Yes - Caffeine Use Caffeine Use: Reports: Coffee - Recreational Drug Use Recreational Drug Use: No ED ROS GENERAL - Review of Systems Review Of Systems: See Below Constitutional: Reports: Fever, Malaise, Decreased Appetite HEENT: Reports: No Symptoms Respiratory: Denies: Shortness of Breath Cardiovascular: Denies: Chest Pain GI/Abdominal: Reports: Abdominal Pain (Epigastric and upper abdomen), Nausea. Denies: Diarrhea, Vomiting Skin: Reports: No Symptoms Neurological: Reports: No Symptoms Psychiatric: Reports: No Symptoms ED EXAM, GENERAL - Physical Exam Exam: See Below Exam Limited By: No Limitations General Appearance: Alert, No Apparent Distress Eye Exam: Bilateral Eye: Normal Inspection (No jaundice) Head: Atraumatic Respiratory/Chest: No Respiratory Distress, Lungs Clear Cardiovascular: Regular Rate, Rhythm GI/Abdominal: Soft, Non-Tender, Tender (She claims to have some tenderness in the epigastric and upper abdomen but there is no guarding or rebound) Neurological: Alert, Oriented Psychiatric: Normal Affect, Normal Mood Skin Exam: Warm, Dry Course - Vital Signs Last Recorded V/S: Last Vital Signs Temp 98.2 F 09/04/19 23:17 Pulse 96 09/04/19 22:19 Resp 16 09/04/19 22:19 BP 138/89 09/04/19 22:19 Pulse Ox 98 09/04/19 22:19 - Orders/Labs/Meds Labs: Laboratory Tests 09/04/19 09/04/19 Range/Units 22:42 22:42 WBC 6.3 (4.5-11.0) K/uL RBC 3.97 (3.30-5.50) M/uL Hgb 11.9 L (12.0-15.0) g/dL Hct 37.5 (36.0-48.0) % MCV 95 (80-98) fL MCH 30 (27-31) pg MCHC 32 (32-36) % Plt Count 213 (150-400) K/uL Neut % (Auto) 55 (36-66) % Lymph % (Auto) 30 (24-44) % Delta % (Auto) 11 H (2-6) % Eos % (Auto) 4 (2-4) % Baso % (Auto) 1 (0-1) % Sodium 145 (140-148) mmol/L Potassium 3.9 (3.6-5.2) mmol/L Chloride 111 H (100-108) mmol/L Carbon Dioxide 23 (21-32) mmol/L Anion Gap 14.9 H (5.0-14.0) mmol/L BUN 13 D (7-18) mg/dL Creatinine 0.9 (0.6-1.0) mg/dL Est Cr Clr Drug Dosing 63.86 mL/min Estimated GFR (MDRD) > 60 (>60) Glucose 101 (74-106) mg/dL Calcium 8.1 L (8.5-10.1) mg/dL Total Bilirubin 0.2 (0.2-1.0) mg/dL AST 28 (15-37) U/L ALT 42 (12-78) U/L Alkaline Phosphatase 137 H (46-116) U/L Total Protein 6.1 L (6.4-8.2) g/dL Albumin 3.0 L (3.4-5.0) g/dL Globulin 3.1 (2.3-3.5) g/dL Albumin/Globulin Ratio 1.0 L (1.2-2.2) Meds: Medications Discontinued Medications Generic Name Dose Route Start Last Admin Trade Name Vinicius PRN Reason Stop Dose Admin Al Hydroxide/Mg Hydroxide 30 ml 09/04/19 22:32 09/04/19 22:37 Mag-Al Plus PO 09/04/19 22:33 30 ml ONETIME ONE Administration - Re-Assessments/Exams Free Text/Narrative Re-Assessment/Exam: 09/04/19 22:57 Patient was given 30 cc of Maalox, a CBC and CMP were obtained. 09/04/19 23:16 Maalox gave her some improvement but she still had a little bit of "pressure". Labs were normal her baseline. She was given a note for work for tonight and tomorrow night, told to increase her activity and diet slowly as tolerated and return in 2 to 3 days if not improving. Departure - Departure Time of Disposition: 23:22 Disposition: Home, Self-Care 01 Clinical Impression: Abdominal pain Qualifiers: Abdominal location: epigastric Qualified Code(s): R10.13 - Epigastric pain - Discharge Information Instructions: Abdominal Pain, Adult, [id number] Referrals: Chester Plata MD [Primary Care Provider] - Forms: ED Department Discharge Care Plan Goals: Advance diet and activity slowly, rest tonight and tomorrow. Consider Pepto- Bismol or antacid for symptoms. Recheck in 2 to 3 days if not improving satisfactorily. Sepsis Event Note (ED) - Evaluation Sepsis Screening Result: Possible Sepsis Risk - Focused Exam Vital Signs: Vital Signs Temp Pulse Resp BP Pulse Ox 09/04/19 23:17 98.2 F 09/04/19 22:19 99.0 F 96 16 138/89 98 09/04/19 22:13 99.0 F 96 16 138/89 98
== END 2019-09-04 23:22 | disposition home or self-care (01) ==
LOC: JP.ED 21:53
DX: R10.13 Epigastric pain (principal); J45.909 Unspecified asthma, uncomplicated; M19.90 Unspecified osteoarthritis, unspecified site; F32.9 Major depressive disorder, single episode, unspecified; E66.9 Obesity, unspecified; Z68.26 Body mass index [BMI] 26.0-26.9, adult; Z79.899 Other long term (current) drug therapy
CPT/HCPCS: 36415; 80053; 85025; 99284; A9270

== ENCOUNTER 2019-10-31 11:33 | Emergency (ER) | payer BC ==
[2019-10-31 12:11] VITALS: BP 128/80; PULSE 77
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
--- NOTE | 2019-10-31 13:50 | EDM.PDOC ---
ED HPI GENERAL MEDICAL PROBLEM - General Chief Complaint: General Stated Complaint: DIZZY,STOMACH HURTS Time Seen by Provider: 10/31/19 12:00 - History of Present Illness INITIAL COMMENTS - FREE TEXT/NARRATIVE: Patient presents to the emergency department stating that she has had some abdominal cramping and lightheadedness over the past number of days and she states that this morning she was lightheaded and she states she has not eaten anything today. She says the symptoms come and go and she was supposed to be at work today and was supposed to be at work yesterday but did not go and she is going to need a work note. She is not diabetic and she denies any new changes in medicine. Abdomen Pain Score (Numeric/FACES): 2 - Related Data Allergies Allergy/AdvReac Type Severity Reaction Status Date / Time No Known Allergies Allergy Verified 09/04/19 22:16 Home Meds: Home Meds FLUoxetine [PROzac] 60 mg PO DAILY 07/12/14 [History] Lisinopril 10 mg PO DAILY 07/12/14 [History] traZODone 50 mg PO BEDTIME 06/02/16 [History] Multivitamins [Childrens Chewable Vitamin] 1 tab PO BID #0 06/08/16 [Rx] Vitamin B Complex [B Complex] 1 tab PO DAILY 08/10/16 [History] Hyoscyamine [Levsin] 0.125 mg PO Q4HR PRN 01/19/18 [History] Magnesium Oxide 400 mg PO DAILY 01/19/18 [History] Calcium Citrate 250 mg PO BID 01/22/18 [History] Cholecalciferol (Vitamin D3) [Vitamin D3] 5,000 unit PO BID 01/22/18 [History] Vitamin A 20,000 units PO DAILY 01/22/18 [History] Cyanocobalamin (Vitamin B-12) [Vitamin B-12] 1,000 mcg SL DAILY 02/08/18 [History] Albuterol Sulfate [Proair Digihaler] 90 mcg IH ASDIRECTED 04/07/19 [History] Cyanocobalamin (Vitamin B-12) [Cyanocobalamin Injection] 1,000 mcg IM Q14D 04/07/19 [History] Iron,Carbonyl/Ascorbic Acid [Vitron-C Tablet] 1 tab PO DAILY 04/07/19 [History] Past Medical History HEENT History: Reports: Impaired Vision Other HEENT History: wears glasses or contacts Cardiovascular History: Reports: Hypertension Respiratory History: Reports: Asthma, Sleep Apnea Other Respiratory History: Wears CPAP Gastrointestinal History: Reports: None Genitourinary History: Reports: None RETAIL ADVISOR History: Reports: Dysfunctional 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, Musculoskeletal History: Reports: Arthritis Other Musculoskeletal History: left knee issues Neurological History: Reports: Migraines Psychiatric History: Reports: Depression, Psych Hospitalization(s), Suicide Attempt Endocrine/Metabolic History: Reports: Obesity/BMI 30+, Vitamin D Deficiency Hematologic History: Reports: Anemia, B12 Deficiency, Folic Acid - Infectious Disease History Infectious Disease History: Reports: Chicken Pox - Past Surgical History Head Surgeries/Procedures: Reports: None HEENT Surgical History: Reports: None Cardiovascular Surgical History: Reports: None Respiratory Surgical History: Reports: None GI Surgical History: Reports: Bariatric Procedure, Colonoscopy, EGD Female Surgical History: Reports: Section Endocrine Surgical History: Reports: None Neurological Surgical History: Reports: None Musculoskeletal Surgical History: Reports: Arthroscopic Knee Dermatological Surgical History: Reports: None Social & Family History - Family History Family Medical History: Noncontributory - Tobacco Use Smoking Status *Q: Current Every Day Smoker Years of Tobacco use: 30 Packs/Tins Daily: 0.2 Used Tobacco, but Quit: No Second Hand Smoke Exposure: No - Caffeine Use Caffeine Use: Reports: Coffee, Soda - Alcohol Use Days Per Week of Alcohol Use: 0 - Recreational Drug Use Recreational Drug Use: No ED ROS GENERAL - Review of Systems Review Of Systems: Comprehensive ROS is negative, except as noted in HPI. ED EXAM, GENERAL - Physical Exam Exam: See Below Exam Limited By: No Limitations General Appearance: Alert Head: Atraumatic Respiratory/Chest: No Respiratory Distress Cardiovascular: Normal Peripheral Pulses GI/Abdominal: Normal Bowel Sounds Back Exam: Normal Inspection Extremities: Normal Inspection Neurological: Alert Skin Exam: Warm, Dry Course - Vital Signs Text/Narrative:: Patient did well here in the emergency department but her blood sugar was fairly low and we gave her some food and juice and she felt much better and we will have her eat more frequent meals and follow-up with her family doctor. Last Recorded V/S: Last Vital Signs Temp 97.9 F 10/31/19 12:38 Pulse 77 10/31/19 12:38 Resp 16 10/31/19 12:38 BP 128/80 09/10/20 12:38 Pulse Ox 96 10/31/19 12:38 - Orders/Labs/Meds Orders: Active Orders 24 hr Category Date Time Status EKG Documentation Completion [RC] ASDIRECTED Care 10/31/19 12:16 Active EKG 12 Lead [EK] Urgent Ther 10/31/19 12:15 Ordered Labs: Laboratory Tests 10/31/19 10/31/19 Range/Units 12:27 12:27 WBC 6.1 (4.5-11.0) K/uL RBC 4.29 (3.30-5.50) M/uL Hgb 12.6 (12.0-15.0) g/dL Hct 41.2 (36.0-48.0) % MCV 96 (80-98) fL MCH 29 (27-31) pg MCHC 31 L (32-36) % Plt Count 223 (150-400) K/uL Neut % (Auto) 69 H (36-66) % Lymph % (Auto) 19 L (24-44) % [place] % (Auto) 10 H (2-6) % Eos % (Auto) 2 (2-4) % Baso % (Auto) 0 (0-1) % Sodium 143 (140-148) mmol/L Potassium 3.6 (3.6-5.2) mmol/L Chloride 107 (100-108) mmol/L Carbon Dioxide 25 (21-32) mmol/L Anion Gap 10.6 (5.0-14.0) mmol/L BUN 8 (7-18) mg/dL Creatinine 0.8 (0.6-1.0) mg/dL Est Cr Clr Drug Dosing 71.84 mL/min Estimated GFR (MDRD) > 60 (>60) Glucose 39 L* (74-106) mg/dL Calcium 8.3 L (8.5-10.1) mg/dL Departure - Departure Time of Disposition: 13:49 Disposition: Home, Self-Care 01 Clinical Impression: Hypoglycemia - Discharge Information Instructions: Hypoglycemia, [id number] Referrals: Chester Plata MD [Primary Care Provider] - Sepsis Event Note (ED) - Evaluation Sepsis Screening Result: No Definite Risk - Focused Exam Vital Signs: Vital Signs Temp Pulse Resp BP Pulse Ox 10/31/19 12:38 97.9 F 77 16 128/80 96 09/10/20 12:09 97.9 F 77 16 128/80 96 - My Orders Last 24 Hours: My Active Orders 10/31/19 12:15 EKG 12 Lead [EK] Urgent 10/31/19 12:16 EKG Documentation Completion [RC] ASDIRECTED - Assessment/Plan Last 24 Hours: My Active Orders 10/31/19 12:15 EKG 12 Lead [EK] Urgent 10/31/19 12:16 EKG Documentation Completion [RC] ASDIRECTED
== END 2019-10-31 14:10 | disposition home or self-care (01) ==
LOC: JP.ED 11:33
DX: E16.2 Hypoglycemia, unspecified (principal); I10 Essential (primary) hypertension; J45.909 Unspecified asthma, uncomplicated; F32.9 Major depressive disorder, single episode, unspecified; E66.9 Obesity, unspecified; Z68.26 Body mass index [BMI] 26.0-26.9, adult; Z79.899 Other long term (current) drug therapy
CPT/HCPCS: 36415; 70450; 70450-26; 80048; 85025; 93005; 93010; 99284-25

== ENCOUNTER 2020-04-19 16:40 | Emergency (ER) | payer BC ==
[2020-04-19 16:59] VITALS: BP 138/89; PULSE 64
[2020-04-19] MEDS ORDERED: Meclizine 25 MG Tab PO ONE (17:33)
--- NOTE | 2020-04-19 17:36 | EDM.PDOC ---
ED HPI GENERAL MEDICAL PROBLEM - General Chief Complaint: General Stated Complaint: DIZZINESS Time Seen by Provider: 04/19/20 17:27 Source of Information: Reports: Patient, Family, RN Notes Reviewed History Limitations: Reports: No Limitations - History of Present Illness INITIAL COMMENTS - FREE TEXT/NARRATIVE: 50-year-old female presents emergency department a complaint of dizziness, she states that it started this morning when she woke up it would come and go when she lays down she feels pretty good really does not have much dizziness the dizziness is worse when she stands up she describes it as the room spinning around she can ambulate however she recently had a knee injury so difficulty with ambulation anyway. Has had some nausea no vomiting - Related Data Allergies Allergy/AdvReac Type Severity Reaction Status Date / Time No Known Allergies Allergy Verified 04/19/20 17:02 Home Meds: Home Meds FLUoxetine [PROzac] 60 mg PO DAILY 07/12/14 [History] Lisinopril 10 mg PO DAILY 07/12/14 [History] traZODone 50 mg PO BEDTIME PRN 06/02/16 [History] Multivitamins [Childrens Chewable Vitamin] 1 tab PO BID #0 06/08/16 [Rx] Vitamin B Complex [B Complex] 1 tab PO DAILY 08/10/16 [History] Hyoscyamine [Levsin] 0.125 mg PO Q4HR PRN 01/19/18 [History] Magnesium Oxide 400 mg PO DAILY 01/19/18 [History] Calcium Citrate 250 mg PO BID 01/22/18 [History] Cholecalciferol (Vitamin D3) [Vitamin D3] 5,000 unit PO BID 01/22/18 [History] Vitamin A 20,000 units PO DAILY 01/22/18 [History] Cyanocobalamin (Vitamin B-12) [Vitamin B-12] 1,000 mcg SL DAILY 02/08/18 [History] Albuterol Sulfate [Proair Digihaler] 1 puff IH Q4H PRN 04/07/19 [History] Cyanocobalamin (Vitamin B-12) [Cyanocobalamin Injection] 1,000 mcg IM Q14D 04/07/19 [History] Iron,Carbonyl/Ascorbic Acid [Vitron-C Tablet] 1 tab PO DAILY 04/07/19 [History] Hydrocodone/Acetaminophen [Hydrocodon-Acetaminophen 5-325] 1 each PO Q4H PRN 04/19/20 [History] Past Medical History HEENT History: Reports: Impaired Vision Other HEENT History: wears glasses or contacts Cardiovascular History: Reports: Hypertension Respiratory History: Reports: Asthma, Sleep Apnea Other Respiratory History: Wears CPAP 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: Dysfunctional 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, Musculoskeletal History: Reports: Arthritis Other Musculoskeletal History: left knee issues Neurological History: Reports: Migraines Psychiatric History: Reports: Depression, Psych Hospitalization(s), Suicide A ttempt Endocrine/Metabolic History: Reports: Obesity/BMI 30+, Vitamin D Deficiency Hematologic History: Reports: Anemia, B12 Deficiency, Folic Acid - Infectious Disease History Infectious Disease History: Reports: Chicken Pox - Past Surgical History Head Surgeries/Procedures: Reports: None GI Surgical History: Reports: Bariatric Procedure, Colonoscopy, EGD Female Surgical History: Reports: Section Endocrine Surgical History: Reports: None Neurological Surgical History: Reports: None Musculoskeletal Surgical History: Reports: Arthroscopic Knee Social & Family History - Family History Family Medical History: No Pertinent Family History - Tobacco Use Tobacco Use Status *Q: Current Every Day Tobacco User Years of Tobacco use: 35 Packs/Tins Daily: 0.5 - Caffeine Use Caffeine Use: Reports: Coffee - Recreational Drug Use Recreational Drug Use: No ED ROS GENERAL - Review of Systems Review Of Systems: See Below Constitutional: Denies: Fever, Chills HEENT: Reports: Vertigo Respiratory: Reports: No Symptoms Cardiovascular: Reports: No Symptoms GI/Abdominal: Reports: Nausea Neurological: Reports: Dizziness ED EXAM, GENERAL - Physical Exam Exam: See Below Free Text/Narrative:: Head impulse test: Corrective saccades is positive when head turned to the bilateral Nystagmus: unidirectional, horizontal 1-beating nystagmus Skew deviation: grossly absent Exam Limited By: No Limitations General Appearance: Alert, WD/WN, No Apparent Distress Eye Exam: Bilateral Eye: EOMI, Normal Inspection, PERRL Ears: Normal External Exam, Normal Canal, Hearing Grossly Normal, Normal TMs Head: Atraumatic, Normocephalic Neck: Normal Inspection, Supple, Non-Tender, Full Range of Motion Respiratory/Chest: No Respiratory Distress (No), Lungs Clear, Normal Breath Sounds, No Accessory Muscle Use, Chest Non-Tender Cardiovascular: Regular Rate, Rhythm, No Murmur GI/Abdominal: Soft, Non-Tender Neurological: Alert, CN II-XII Intact, Normal Cognition, No Motor/Sensory Deficits Course - Vital Signs Last Recorded V/S: Last Vital Signs Temp 98.2 F 04/19/20 17:06 Pulse 64 04/19/20 17:06 Resp 16 04/19/20 17:06 BP 138/89 04/19/20 17:06 Pulse Ox 97 04/19/20 17:06 Orthostatic Blood Pressure [ 138/96 Standing] Orthostatic Blood Pressure [ 139/87 Sitting] Orthostatic Blood Pressure [ 134/83 Supine] - Orders/Labs/Meds Meds: Medications Discontinued Medications Generic Name Dose Route Start Last Admin Trade Name Vinicius PRN Reason Stop Dose Admin Meclizine HCl 25 mg 04/19/20 17:33 04/19/20 17:36 Antivert PO 04/19/20 17:34 25 mg ONETIME ONE Administration Departure - Departure Time of Disposition: 18:05 Disposition: Home, Self-Care 01 Condition: Good Clinical Impression: Dizziness - Discharge Information Instructions: Dizziness, [id number] Referrals: PCP,None [Primary Care Provider] - Forms: ED Department Discharge Additional Instructions: use meclizine as needed Sepsis Event Note (ED) - Evaluation Sepsis Screening Result: No Definite Risk - Focused Exam Vital Signs: Vital Signs Temp Pulse Resp BP Pulse Ox 04/19/20 17:06 98.2 F 64 16 138/89 97 04/19/20 16:57 98.2 F 64 16 138/89 97 - Assessment/Plan Plan: Assessment Acuity = acute Site and laterality = dizzy Etiology = unknown Manifestations = none Location of injury = Home Lab values = none Plan use meclizine as needed This note was dictated using [employer] voice recognition software please call with any questions on syntax or grammar.
== END 2020-04-19 18:12 | disposition home or self-care (01) ==
LOC: JP.ED 16:40
DX: R42 Dizziness and giddiness (principal); I10 Essential (primary) hypertension; J45.909 Unspecified asthma, uncomplicated; E66.9 Obesity, unspecified; Z68.28 Body mass index [BMI] 28.0-28.9, adult; Z72.0 Tobacco use; Z79.899 Other long term (current) drug therapy
CPT/HCPCS: 99283; A9270

== ENCOUNTER 2021-10-23 20:40 | Emergency (ER) | payer BC, MEDICAID ==
[2021-10-23 22:45] VITALS: BP 164/104; PULSE 82
[2021-10-23] MEDS ORDERED: Cyclobenzaprine 10 MG Tab PO ONE (23:26)
[2021-10-23] MEDS ORDERED: Ketorolac 30 MG/ML SDV IM ONE (23:26)
[2021-10-24] MEDS ORDERED: Cyclobenzaprine 10 MG Tab ONE (00:09)
== END 2021-10-24 00:58 | disposition home or self-care (01) ==
LOC: JP.ED 20:40
DX: M54.50 Low back pain, unspecified (principal); J45.909 Unspecified asthma, uncomplicated; I10 Essential (primary) hypertension; F17.210 Nicotine dependence, cigarettes, uncomplicated; E66.9 Obesity, unspecified; Z68.28 Body mass index [BMI] 28.0-28.9, adult; Z79.899 Other long term (current) drug therapy
CPT/HCPCS: 96372; 99283; A9270; J1885

== ENCOUNTER 2022-08-21 12:56 | Emergency (ER) | payer BC, MEDICAID ==
[2022-08-21 15:35] VITALS: BP 119/79; PULSE 62
== END 2022-08-21 15:45 | disposition home or self-care (01) ==
LOC: JP.ED 12:56
DX: B34.9 Viral infection, unspecified (principal); I10 Essential (primary) hypertension; J45.909 Unspecified asthma, uncomplicated; F17.210 Nicotine dependence, cigarettes, uncomplicated; E66.9 Obesity, unspecified; Z68.27 Body mass index [BMI] 27.0-27.9, adult; Z98.890 Other specified postprocedural states; Z20.822 Contact with and (suspected) exposure to COVID-19
CPT/HCPCS: 87651-QW; 99284; U0002

== ENCOUNTER 2022-11-12 05:35 | Emergency (ER) | payer BC, MEDICAID ==
[2022-11-12] MEDS ORDERED: Sodium Chloride 0.9% 10 ML Syringe FLUSH PRN ×2 (06:05→06:35)
[2022-11-12 06:21] LABS: BASOPHILS PERCENT AUTO 0.2 % (0.1-1.3); EOSINOPHILS ABSOLUTE AUTO 0.17 K/uL (0.00-0.40); EOSINOPHILS PERCENT AUTO 2.1 % (0.0-5.4); HEMOGLOBIN 11.4 g/dL (11.2-15.5); IMMATURE GRAN PERCENT AUTO 0.2 % (0.0-0.7); LYMPHOCYTES ABSOLUTE AUTO 1.46 K/uL (0.8-3.3); LYMPHOCYTES PERCENT AUTO 17.9 % (11.4-47.7); MEAN CORPUSCULAR HEMOGLOBIN 27.9 pg (31.6-35.5); MEAN CORPUSCULAR HGB CONC 31.7 g/dL (31.6-35.5); MEAN CORPUSCULAR VOLUME 88.2 fL (81.4-99.0); MONOCYTES ABSOLUTE AUTO 0.68 K/uL (0.20-0.90); MONOCYTES PERCENT AUTO 8.4 % (3.3-12.6); NEUTROPHILS ABSOLUTE AUTO 5.79 K/uL (1.0-7.6); NEUTROPHILS PERCENT AUTO 71.2 % (40.0-78.1); PLATELET COUNT,PLT 237 K/uL (130-375); RED BLOOD CELL COUNT 4.08 M/uL (3.77-5.24); WHITE BLOOD CELL COUNT,WBC 8.1 K/uL (3.2-11.0)
[2022-11-12 06:22] LABS: BASOPHILS ABSOLUTE AUTO 0.02 K/uL (0.00-0.10); IMMATURE GRAN ABSOLUTE AUTO 0.02 K/uL (0.00-0.23)
[2022-11-12 06:32] LABS: APPEARANCE,URINE SLIGHTLY CLOUDY (CLEAR); BILIRUBIN,URINE NEGATIVE (NEGATIVE); COLOR,URINE YELLOW (YELLOW); GLUCOSE,URINE NEGATIVE (NEGATIVE); KETONES,URINE NEGATIVE (NEGATIVE); LEUKOCYTE ESTERASE,URINE MODERATE (NEGATIVE); NITRITE,URINE NEGATIVE (NEGATIVE); OCCULT BLOOD,URINE TRACE-INTACT (NEGATIVE); PH,URINE 5.5 (5.0-8.0); PROTEIN,URINE NEGATIVE (NEGATIVE); UROBILINOGEN,URINE 0.2 EU/dL (0.2-1.0)
[2022-11-12] MEDS ORDERED: Sodium Chloride 0.9% 50 ML IV ONE (06:35)
[2022-11-12] MEDS ORDERED: Iopamidol 612 MG/ML 100 ML Bottle IV PRN (06:35)
[2022-11-12 06:41] LABS: AMORPHOUS SEDIMENT,URINE NOT SEEN; BACTERIA,URINE MANY; EPITHELIAL CELLS,URINE MODERATE; MUCUS,URINE FEW; WBC,URINE 30-40 (0-5)
[2022-11-12 06:41] LABS: A/G RATIO 1.1 (1.2-2.2); ALANINE AMINOTRANSFERASE,ALT 25 U/L (12-78); ALBUMIN 3.4 g/dL (3.4-5.0); ALKALINE PHOSPHATASE 142 U/L (46-116); ASPARTATE AMNIOTRANSFERASE,AST 30 U/L (15-37); BILIRUBIN TOTAL 0.4 mg/dL (0.2-1.0); BLOOD UREA NITROGEN,BUN 11 mg/dL (7-18); C-REACTIVE PROTEIN 0.05 mg/dL (0.0-0.3); CARBON DIOXIDE,CO2 27 mmol/L (21-32); CHLORIDE,CL 106 mmol/L (100-108); CREATININE 0.6 mg/dL (0.6-1.0); EST CRCL DRUG DOSING (CG) 88.67 mL/min; ESTIMATED GFR 107 mL/min (>60); GLUCOSE RANDOM 98 mg/dL (74-106); POTASSIUM,K 3.4 mmol/L (3.6-5.2); PROTEIN TOTAL,TP 6.6 g/dL (6.4-8.2); SODIUM,NA 141 mmol/L (140-148)
[2022-11-12 06:42] LABS: ANION GAP 11.4 mmol/L (5.0-14.0)
[2022-11-12 08:42] VITALS: BP 111/70; PULSE 73
== END 2022-11-12 09:05 | disposition home or self-care (01) ==
LOC: JP.ED 05:35
DX: N30.01 Acute cystitis with hematuria (principal); F17.210 Nicotine dependence, cigarettes, uncomplicated; I10 Essential (primary) hypertension; J45.909 Unspecified asthma, uncomplicated; E66.9 Obesity, unspecified; Z79.899 Other long term (current) drug therapy
CPT/HCPCS: 36415; 74177; 80053; 81001; 85025; 86140; 87086; 87088; 87186; 99284; J3490; Q9967; 99283